=== PATIENT | male | born 1955 | race Caucasian/White ===

== ENCOUNTER 2016-07-07 16:45 | Emergency (ER) | payer OTHER ==
[~2016-07-07] VITALS: Ht 177.8 cm; Wt 89.9 kg
[2016-07-07 16:50] VITALS: Ht 177.8 cm; Wt 89.9 kg
[2016-07-07] MEDS ORDERED: SODIUM CHLORIDE 0.9% 1000ML 1,000 ML IV STA ×2 (16:57)
[2016-07-07 17:14] VITALS: O2SAT 96
[2016-07-07 17:52] LABS: BASO % 0.4 %; BASO ABS # 0.03 K/uL (0-0.2); COMPLETE YES; EOS % 3.8 %; HEMATOCRIT 43.5 % (42-52); IG% 0.1 %; LYMPH ABS # 1.23 K/uL (1.2-3.4); MEAN CORPUSCULAR HEMOGLOBIN 32.6 pg (25-34); MEAN CORPUSCULAR HGB CONC 34.7 g/dl (32-36); MONO % 9.5 %; NEUT % 68.2 %; PLATELET COUNT 218 K/uL (130-400); RED BLOOD COUNT 4.63 M/uL (4.7-6.1); WHITE BLOOD COUNT 6.84 K/uL (4.8-10.8)
[2016-07-07 18:10] LABS: PARTIAL THROMBOPLASTIN RATIO 1.1; PROTHROMBIN TIME (PATIENT) 10.5 SECONDS (9.0-12.0)
[2016-07-07 18:16] LABS: CREATININE 1.1 mg/dl (0.60-1.40); POTASSIUM 3.7 mmol/L (3.5-5.1)
[2016-07-07 18:19] LABS: ALB/GLOB RATIO 0.8 (0.9-2)
[2016-07-07 18:20] LABS: CALCIUM 8.9 mg/dl (8.5-10.1)
[2016-07-07 19:03] LABS: URINE APPEARANCE CLEAR (CLEAR); URINE BILIRUBIN NEG (NEG); URINE COLOR YELLOW; URINE EPITHELIAL CELL AUTO 0-5 /lpf (0-5); URINE NITRITE NEG (NEG); URINE SPECIFIC GRAVITY 1.005 (1.000-1.030); UROBILINOGEN NEG (NEG); ZZUR CULT IF INDIC CLEAN CATCH NO
[2016-07-07 19:04] LABS: MANUAL MICROSCOPIC REQUIRED? NO; REVIEW REQ? NO
[2016-07-07 19:13] VITALS: BP 133/78; PULSE 72; TEMP 37.4; O2SAT 98
[2016-07-07] MEDS ORDERED: KETOROLAC TROMETHAMINE 30 MG/ML VIAL IV STA (19:27)
--- NOTE | 2016-07-07 19:30 | EMERGENCY ROOM VISIT NOTE ---
History First contact with patient: 16:52 Chief Complaint: FLU LIKE SX Stated Complaint: FLU LIKE SX AFTER PROSTRAST BIOPSY History of Present Illness The patient is a 61 year old male who presents to the Emergency Room with complaints of fever, chills, myalgias and arthralgias for the past day who had a prostate biopsy done yesterday and was on prophylactic Cipro. Patient called his urologist and was advised to go to the ER. He saw Dr. Vasquez. His PSA was elevated and this is what the biopsy was ordered for. Patient plans of urinary frequency. Patient denies chest pain, dyspnea, cough, congestion, abdominal pain, rectal pain, back pain, leg pain or swelling. He is tolerating by mouth fluids and food. Review of Systems See HPI for pertinent positives & negatives. A total of 10 systems reviewed and were otherwise negative. Past Medical/Surgical History none Social History Smoking Status: Never Smoker Smokeless Tobacco Use: No Drug Use: none Marital Status: Housing Status: lives with family Occupation Status: employed Current/Historical Medications No Active Prescriptions or Reported Meds Allergies Coded Allergies: Ciprofloxacin (Unverified Allergy, Unknown, UNKNOWN, 07/07/16) PER PT ANTIBIOTIC DOES NOT WORK. Physical Exam Vital Signs Date Time Temp Pulse Resp B/P Pulse Ox O2 Delivery O2 Flow Rate FiO2 07/07/16 19:13 37.4 72 20 133/78 98 Room Air 07/07/16 18:44 63 16 137/74 98 Room Air 07/07/16 17:14 96 Room Air 07/07/16 16:50 36.7 99 18 148/83 97 Room Air Physical Exam VITALS: Vitals are noted on the nurse's note and reviewed by myself. Vital signs stable. GENERAL: Pleasant male, in no acute distress, nondiaphoretic, well-developed well-nourished. SKIN: The skin was without rashes, erythema, edema, or bruising. There is no tenting of the skin. Capillary reflex less than 2 seconds. HEAD: Normocephalic atraumatic. EARS: External auditory canals clear, tympanic membranes pearly martinez without erythema or effusion bilaterally. EYES: Pupils equal round and reactive to light and accommodation. Conjunctivae without injection, sclerae without icterus. Extraocular movements intact. NOSE: Patent, turbinates without inflammation or discharge. MOUTH: Mucous membranes moist. Pharynx without erythema or exudate. Uvula midline. Airway patent. Tongue does not deviate. NECK: Supple without nuchal rigidity. No lymphadenopathy. No thyromegaly. Cervical spine is nontender. No JVD. HEART: Regular rate and rhythm without murmurs gallops or rubs. LUNGS: Clear to auscultation bilaterally without wheezes, rales or rhonchi. No dullness to percussion. No retractions or accessory muscle use. ABDOMEN: Positive bowel sounds x 4. Normal tympanic percussion. Soft, nontender, without masses or organomegaly. Eduardo sign negative. No guarding or rebound tenderness. Rectal exam: No erythema, drainage or bleeding appreciated. MUSCULOSKELETAL: No muscle atrophy, erythema, or edema noted. NEURO: Patient was alert and oriented to person place and time. Normal sensation to light and sharp touch. No focal neurological deficits. Medical Decision & Procedures Laboratory Results 07/07/16 17:25 Red Blood Count 4.63, Mean Corpuscular Volume 94.0, Mean Corpuscular Hemoglobin 32.6, Mean Corpuscular Hemoglobin Concent 34.7, Mean Platelet Volume 10.0, Neutrophils (%) (Auto) 68.2, Lymphocytes (%) (Auto) 18.0, Monocytes (%) (Auto) 9.5, Eosinophils (%) (Auto) 3.8, Basophils (%) (Auto) 0.4, Neutrophils # (Auto) 4.66, Lymphocytes # (Auto) 1.23, Monocytes # (Auto) 0.65, Eosinophils # (Auto) 0.26, Basophils # (Auto) 0.03 07/07/16 17:25 Test 07/07/16 17:15 07/07/16 17:25 07/07/16 17:35 Urine Color YELLOW Urine Appearance CLEAR (CLEAR) Urine pH 7.0 (4.5-7.5) Urine Specific [place] 1.005 (1.000-1.030) Urine Protein NEG (NEG) Urine Glucose (UA) NEG (NEG) Urine Ketones NEG (NEG) Urine Occult Blood 2+ (NEG) Urine Nitrite NEG (NEG) Urine Bilirubin NEG (NEG) Urine Urobilinogen NEG (NEG) Urine Leukocyte Esterase NEG (NEG) Urine WBC (Auto) 0 /hpf (0-5) Urine RBC (Auto) 10-30 /hpf (0-4) Urine Hyaline Casts (Auto) 0 /lpf (0-5) Urine Epithelial Cells (Auto) 0-5 /lpf (0-5) Urine Bacteria (Auto) NEG (NEG) White Blood Count 6.84 K/uL (4.8-10.8) Red Blood Count 4.63 M/uL (4.7-6.1) Hemoglobin 15.1 g/dL (14.0-18.0) Hematocrit 43.5 % (42-52) Mean Corpuscular Volume 94.0 fL (80-100) Mean Corpuscular Hemoglobin 32.6 pg (25-34) Mean Corpuscular Hemoglobin Concent 34.7 g/dl (32-36) Platelet Count 218 K/uL (130-400) Mean Platelet Volume 10.0 fL (7.4-10.4) Neutrophils (%) (Auto) 68.2 % Lymphocytes (%) (Auto) 18.0 % Monocytes (%) (Auto) 9.5 % Eosinophils (%) (Auto) 3.8 % Basophils (%) (Auto) 0.4 % Neutrophils # (Auto) 4.66 K/uL (1.4-6.5) Lymphocytes # (Auto) 1.23 K/uL (1.2-3.4) Monocytes # (Auto) 0.65 K/uL (0.11-0.59) Eosinophils # (Auto) 0.26 K/uL (0-0.5) Basophils # (Auto) 0.03 K/uL (0-0.2) RDW Standard Deviation 43.6 fL (36.4-46.3) RDW Coefficient of Variation 12.7 % (11.5-14.5) Immature Granulocyte % (Auto) 0.1 % Immature Granulocyte # (Auto) 0.01 K/uL (0.00-0.02) Prothrombin Time 10.5 SECONDS (9.0-12.0) Prothromb Time International Ratio 1.0 (0.9-1.1) Activated Partial Thromboplast Time 28.0 SECONDS (21.0-31.0) Partial Thromboplastin Ratio 1.1 Anion Gap 8.0 mmol/L (3-11) Est Creatinine Clear Calc Drug Dose 81.6 ml/min Estimated GFR () 84.7 Estimated GFR (Non- 73.1 BUN/Creatinine Ratio 13.0 (10-20) Calcium Level 8.9 mg/dl (8.5-10.1) Total Bilirubin 0.3 mg/dl (0.2-1) Aspartate Amino Transf (AST/SGOT) 24 U/L (15-37) Alanine Aminotransferase (ALT/SGPT) 32 U/L (12-78) Alkaline Phosphatase 79 U/L (45-117) Total Protein 7.8 gm/dl (6.4-8.2) Albumin 3.5 gm/dl (3.4-5.0) Globulin 4.3 gm/dl (2.5-4.0) Albumin/Globulin Ratio 0.8 (0.9-2) Bedside Lactic Acid Venous 1.32 mmol/L (0.90-1.70) Medications Administered Medications (Trade) Dose Ordered Sig/Larry Route Start Time Stop Time Status Last Admin Dose Admin Sodium Chloride 1,000 ml @ 999 mls/hr Q1H1M STAT IV 07/07/16 16:57 07/07/16 17:57 DC 07/07/16 16:57 999 MLS/HR Sodium Chloride (Nss 1000ml) 1,000 ml @ 125 mls/hr Q8H STAT IV 07/07/16 16:57 07/08/16 00:56 07/07/16 16:57 125 MLS/HR ED Course Prior records/ancillary studies reviewed. Triage Nursing notes reviewed. Additional history obtained from family. The patient's history was concerning for fever. Differential diagnosis: Etiologies such as complication of recent prostate biopsy, UTI, prostatitis, viral syndrome, otitis, pharyngitis, pneumonia, influenza, meningitis, urinary tract infection, sepsis, bacteremia, as well as others were entertained. Physical examination: Patient is alert and tolerating fluids ER treatment provided: toradol. IV fluids On reassessment the patient felt better. Diagnostics interpreted by me: The labs revealed hematuria, no signs of infection. Negative lactic acid Consultation: A consultation was placed with urology Dr. Vasquez who did the biopsy. The case was discussed and diagnostics were reviewed. She recommends adding on a urine culture and she will follow-up with the patient tomorrow. He recommends no antibiotics and Motrin for pain. This appears to be consistent with subjective fever and chills with no temperature. Patient is well-appearing. He is tolerating fluids. No urine infection on urine culture. He was advised to take Motrin for the pain and to follow-up tomorrow with urology or here in the ER sooner for fevers, vomiting, lethargy, worsening signs or symptoms or as needed. Patient did not have acute abdomen on exam. He is well-appearing.. By the evaluation outlined above emergent etiologies such as otitis, pharyngitis, pneumonia, meningitis, urinary tract infection, sepsis, bacteremia, as well as others were deemed relatively unlikely. The pt informed about the findings as listed above. All questions were answered and pleased with the treatment. Return instructions were outlined and the patient was discharged in stable condition. Referral: The patient was referred back to their urologist tomorrow for a recheck of the current condition. Case reviewed with my Attending. Medical Decision As above Impression Primary Impression: Hematuria Departure Information Dispostion Home / Self-Care Condition GOOD Prescriptions No Active Prescriptions or Reported Meds Referrals Deni Montalvo (PCP) Patient Instructions My [facility] Additional Instructions Ibuprofen(Motrin, Advil) may be used for fever or pain. Use 600mg every six hours as needed. Take with food. Avoid using more than 2400mg in a 24 hour period. Do not use 2400mg per day for more than three consecutive days without physician direction. Prolonged inappropriate use can lead to stomach upset or ulcers. (AND/OR) Acetaminophen(Tylenol) may be used for fever or pain. Use 1000mg every six hours as needed. Avoid using more than 3000mg in a 24 hour period. Rest and drink plenty of fluids as tolerated. Slow sips of water or sports drinks are recommended instead of large amounts all at once. Continue current medications. Return to the ER immediately for worsening or persistent abdominal/back pain, vomiting, fevers, worsening of your condition, or as needed. Follow up with your urologist tomorrow for a recheck of the current condition.
[2016-07-29] MEDS ORDERED: MULTTAB58 PO (10:10)
[2016-07-29] MEDS ORDERED: CETI10TA84 PO (10:10)
[2016-07-29] MEDS ORDERED: [UNRECOGNIZED DRUG - REMARK] PO (10:10)
[2016-07-29] MEDS ORDERED: OMEG10007 PO (10:10)
[2016-09-14] MEDS ORDERED: POLY335019 PO (08:45)
[2016-09-21] MEDS ORDERED: PSYL48.59 PO (08:55)
[2016-09-28] MEDS ORDERED: DTR/5 PO (08:55)
[2016-10-20] MEDS ORDERED: TAMS0.4C38 PO (08:29)
== END 2016-07-07 19:42 | disposition home or self-care (01) ==
LOC: C.EDB 16:50
DX: R31.9 Hematuria, unspecified (principal); R50.9 Fever, unspecified; M79.1 Myalgia; M25.50 Pain in unspecified joint

== ENCOUNTER 2016-07-07 22:59 | Inpatient (IN) | payer OTHER ==
[~2016-07-07] VITALS: Ht 177.8 cm; Wt 86.0 kg
[2016-07-07] MEDS ORDERED: PIPERACILLIN/TAZOBACTAM 4.5 GM/100ML D5W IV STA (23:04)
[2016-07-07] MEDS ORDERED: SODIUM CHLORIDE 0.9% 1000ML 1,000 ML IV STA ×2 (23:04→23:19)
[2016-07-07] MEDS ORDERED: CEFTRIAXONE SOD INJ 1 GM in DEXTROSE 5% ADD-VANTAGE 50ML 50 ML IV STA (23:16)
[2016-07-07] MEDS ORDERED: ONDANSETRON INJ 2 MG/ML 2 ML VIAL IV STA (23:19)
[2016-07-07] MEDS ORDERED: ALUMINUM/MAGNESIUM/SIMETH (MAALOX MAX) 30 ML UDC PO PRN (23:30)
[2016-07-07] MEDS ORDERED: ONDANSETRON INJ 2 MG/ML 2 ML VIAL IV PRN (23:30)
[2016-07-07] MEDS ORDERED: CEFTRIAXONE SOD INJ 1 GM in DEXTROSE 5% ADD-VANTAGE 50ML 50 ML IV SCH (23:30)
[2016-07-07] MEDS ORDERED: SODIUM CHLORIDE 0.9% 1000ML 1,000 ML IV SCH (23:30)
[2016-07-07] MEDS ORDERED: MAGNESIUM HYDROXIDE SUSP 30 ML UDC PO PRN (23:30)
[2016-07-07] MEDS ORDERED: POLYETHYLENE (MIRALAX) 17 GM PACK PO PRN (23:30)
[2016-07-07] MEDS ORDERED: ZOLPIDEM TARTRATE 5 MG TAB PO PRN (23:30)
[2016-07-07 23:38] LABS: BASO % 0.2 %; BASO ABS # 0.01 K/uL (0-0.2); COMPLETE YES; EOS % 0.9 %; IG% 0.2 %; LYMPH % 10.2 %; LYMPH ABS # 0.67 K/uL (1.2-3.4); MEAN CELL VOLUME 92.6 fL (80-100); MEAN CORPUSCULAR HEMOGLOBIN 32.7 pg (25-34); MEAN CORPUSCULAR HGB CONC 35.4 g/dl (32-36); MEAN PLATELET VOLUME 9.5 fL (7.4-10.4); MONO % 0.5 %; PLATELET COUNT 195 K/uL (130-400); RED BLOOD COUNT 4.43 M/uL (4.7-6.1); WHITE BLOOD COUNT 6.54 K/uL (4.8-10.8)
--- NOTE | 2016-07-07 23:45 | EMERGENCY ROOM VISIT NOTE ---
History First contact with patient: 23:01 Chief Complaint: VOMITING Stated Complaint: VOMITTING, FEVER History of Present Illness The patient is a 61 year old male who presents to the Emergency Room with complaints of fever, chills, myalgias, arthralgias, nausea, vomiting who had a prostate biopsy yesterday by Dr. Vasquez. Patient was just discharged here 2 hours ago and states when he got home he ate and then felt sick and vomited to the shower and developed a fever. His then called me in the ER and I advised them to come back to the ER. Patient temperature was 102. Patient states he feels horrible now. He states he feels much worse than earlier today. She denies chest pain, dyspnea, abdominal pain, back pain, cough, congestion. Review of Systems See HPI for pertinent positives & negatives. A total of 10 systems reviewed and were otherwise negative. Past Medical/Surgical History Medical Problems: (1) Fever Social History Smoking Status: Never Smoker Drug Use: none Marital Status: Housing Status: lives with family Occupation Status: employed Current/Historical Medications No Active Prescriptions or Reported Meds Allergies Coded Allergies: Ciprofloxacin (Unverified Allergy, Unknown, UNKNOWN, 07/07/16) PER PT ANTIBIOTIC DOES NOT WORK. Physical Exam Vital Signs Date Time Temp Pulse Resp B/P Pulse Ox O2 Delivery O2 Flow Rate FiO2 07/07/16 23:17 107 07/07/16 23:04 39.5 135 20 144/78 90 Room Air Physical Exam VITALS: Vitals are noted on the nurse's note and reviewed by myself. Vital signs febrile GENERAL: White male ill-appearing, pale SKIN: The skin was without rashes, erythema, edema, or bruising. There is no tenting of the skin. Capillary reflex less than 2 seconds. HEAD: Normocephalic atraumatic. EARS: External auditory canals clear, tympanic membranes pearly martinez without erythema or effusion bilaterally. EYES: Pupils equal round and reactive to light and accommodation. Conjunctivae without injection, sclerae without icterus. Extraocular movements intact. NOSE: Patent, turbinates without inflammation or discharge. No sinus tenderness. MOUTH: Mucous membranes mildly dry. Pharynx without erythema or exudate. Uvula midline. Airway patent. Tongue does not deviate. NECK: Supple without nuchal rigidity. No lymphadenopathy. No thyromegaly. Cervical spine is nontender. No JVD. HEART: Regular rate and rhythm without murmurs gallops or rubs. LUNGS: Clear to auscultation bilaterally without wheezes, rales or rhonchi. No dullness to percussion. No retractions or accessory muscle use. ABDOMEN: Positive bowel sounds x 4. Normal tympanic percussion. Soft, nontender, without masses or organomegaly. Eduardo sign negative. No guarding or rebound tenderness. MUSCULOSKELETAL: No muscle atrophy, erythema, or edema noted. NEURO: Patient was alert and oriented to person place and time. Normal sensation to light and sharp touch. No focal neurological deficits. Medical Decision & Procedures Laboratory Results 07/07/16 23:18 Red Blood Count 4.43, Mean Corpuscular Volume 92.6, Mean Corpuscular Hemoglobin 32.7, Mean Corpuscular Hemoglobin Concent 35.4, Mean Platelet Volume 9.5, Neutrophils (%) (Auto) 88.0, Lymphocytes (%) (Auto) 10.2, Monocytes (%) (Auto) 0.5, Eosinophils (%) (Auto) 0.9, Basophils (%) (Auto) 0.2, Neutrophils # (Auto) 5.76, Lymphocytes # (Auto) 0.67, Monocytes # (Auto) 0.03, Eosinophils # (Auto) 0.06, Basophils # (Auto) 0.01 Test 07/07/16 23:18 White Blood Count 6.54 K/uL (4.8-10.8) Red Blood Count 4.43 M/uL (4.7-6.1) Hemoglobin 14.5 g/dL (14.0-18.0) Hematocrit 41.0 % (42-52) Mean Corpuscular Volume 92.6 fL (80-100) Mean Corpuscular Hemoglobin 32.7 pg (25-34) Mean Corpuscular Hemoglobin Concent 35.4 g/dl (32-36) Platelet Count 195 K/uL (130-400) Mean Platelet Volume 9.5 fL (7.4-10.4) Neutrophils (%) (Auto) 88.0 % Lymphocytes (%) (Auto) 10.2 % Monocytes (%) (Auto) 0.5 % Eosinophils (%) (Auto) 0.9 % Basophils (%) (Auto) 0.2 % Neutrophils # (Auto) 5.76 K/uL (1.4-6.5) Lymphocytes # (Auto) 0.67 K/uL (1.2-3.4) Monocytes # (Auto) 0.03 K/uL (0.11-0.59) Eosinophils # (Auto) 0.06 K/uL (0-0.5) Basophils # (Auto) 0.01 K/uL (0-0.2) RDW Standard Deviation 42.9 fL (36.4-46.3) RDW Coefficient of Variation 12.6 % (11.5-14.5) Immature Granulocyte % (Auto) 0.2 % Immature Granulocyte # (Auto) 0.01 K/uL (0.00-0.02) ED Course Prior records/ancillary studies reviewed. Triage Nursing notes reviewed. Additional history obtained from family The patient's history was concerning for fever. Differential diagnosis: Etiologies such as prostatitis, viral syndrome, otitis, pharyngitis, pneumonia, influenza, meningitis, urinary tract infection, sepsis, bacteremia, as well as others were entertained. Physical examination: Patient is febrile and ill-appearing ER treatment provided: Zosyn, IV fluids, Tylenol On reassessment the patient felt better. Diagnostics interpreted by me: The labs revealed no leukocytosis. Labs were reviewed from earlier today Consultation: A consultation was placed with urologist Dr. Vasquez and recommends Zosyn and admission to medicine. I spoke to the hospitalist, Dr. Goldsmith and accepts admission. The case was discussed and diagnostics were reviewed. The patient was evaluated in the ER for further treatment. This appears to be consistent with prostatitis or recent prostate biopsy. Patient's called me an hour ago as the patient developed a fever and I advised him to come back to the ER for admission. I spoke to Dr. Vasquez and recommends antibiotics and admission to medicine. Patient was started on broad- spectrum antibiotics and blood cultures were repeated per request of Dr. Vasquez. By the evaluation outlined above emergent etiologies such as otitis, pharyngitis, pneumonia, meningitis, as well as others were deemed relatively unlikely. The pt informed about the findings as listed above. All questions were answered and pleased with the treatment. Case reviewed with my Attending. Medical Decision As above Impression Primary Impression: Prostatitis Additional Impressions: Vomiting Fever Departure Information Dispostion Being Evaluated By Hospitalist Condition FAIR Prescriptions No Active Prescriptions or Reported Meds Referrals Deni Montalvo (PCP) Patient Instructions My [facility] Problem Qualifiers Primary Impression: Prostatitis Prostatitis type: acute Qualified Codes: N41.0 - Acute prostatitis
[2016-07-07] MEDS: ACETAMINOPHEN 325 MG TAB PO PRN (23:52)
[2016-07-08] VITALS (8 sets, daily range): BP systolic 89–131; BP diastolic 53–68; PULSE 62–93; TEMP 36.7–38; O2SAT 92–94; Ht 177.8 cm; Wt 86.0 kg
--- NOTE | 2016-07-08 01:42 | History and Physical ---
History & Physical Date & Time of Service: July 08, 2016 at 01:42 Chief Complaint: FEVER Primary Care Physician: Deni Montalvo History of Present Illness Source: patient The patient is a 61 year old male who presents to the Emergency Room with complaints of fever, chills Pt had prostate biopsy done yesterday by Dr Vasquez , due to elevated PSA pt was discharged home , later developed fever , diffuse body ache , nausea was asked to come to ED by Dr Vasquez office in the ED pt was found to febrile , Temp 102 F Social History Smoking Status: Never Smoker Drug Use: none Marital Status: Occupational Status: employed Allergies Coded Allergies: Ciprofloxacin (Unverified Allergy, Unknown, UNKNOWN, 07/07/16) PER PT ANTIBIOTIC DOES NOT WORK. Home Medications No Active Prescriptions or Reported Meds Review of Systems Constitutional: + chills, + fatigue, + fever, + sweats, + weakness Abdomen: + nausea, + vomiting Musculoskeletal: + joint pain, + muscle pain Genitourinary - Male: + dysuria, + hematuria, + urinary frequency Physical Exam Vital Signs Date Time Temp Pulse Resp B/P Pulse Ox O2 Delivery O2 Flow Rate FiO2 07/08/16 00:30 38.0 93 18 102/61 92 Room Air 07/08/16 00:05 37.4 97 22 111/71 94 07/07/16 23:17 107 07/07/16 23:04 39.5 135 20 144/78 90 Room Air General Appearance: + mild distress Head: normocephalic, atraumatic Eyes: sclerae normal Respiratory/Chest: lungs clear, normal breath sounds, no respiratory distress Cardiovascular: regular rate, rhythm Abdomen/GI: normal bowel sounds, non tender, soft Extremities/Musculoskelatal: no calf tenderness, normal capillary refill, no pedal edema Neurologic/Psych: alert, normal mood/affect, oriented x 3 Skin: normal color, warm/dry, no rash Lymphatic: no adenopathy Diagnostics Laboratory Results Results Past 24 Hours Test 07/07/16 23:18 07/07/16 23:28 Range/Units White Blood Count 6.54 4.8-10.8 K/uL Red Blood Count 4.43 4.7-6.1 M/uL Hemoglobin 14.5 14.0-18.0 g/dL Hematocrit 41.0 42-52 % Mean Corpuscular Volume 92.6 80-100 fL Mean Corpuscular Hemoglobin 32.7 25-34 pg Mean Corpuscular Hemoglobin Concent 35.4 32-36 g/dl Platelet Count 195 130-400 K/uL Mean Platelet Volume 9.5 7.4-10.4 fL Neutrophils (%) (Auto) 88.0 % Lymphocytes (%) (Auto) 10.2 % Monocytes (%) (Auto) 0.5 % Eosinophils (%) (Auto) 0.9 % Basophils (%) (Auto) 0.2 % Neutrophils # (Auto) 5.76 1.4-6.5 K/uL Lymphocytes # (Auto) 0.67 1.2-3.4 K/uL Monocytes # (Auto) 0.03 0.11-0.59 K/uL Eosinophils # (Auto) 0.06 0-0.5 K/uL Basophils # (Auto) 0.01 0-0.2 K/uL RDW Standard Deviation 42.9 36.4-46.3 fL RDW Coefficient of Variation 12.6 11.5-14.5 % Immature Granulocyte % (Auto) 0.2 % Immature Granulocyte # (Auto) 0.01 0.00-0.02 K/uL Bedside Lactic Acid Venous 1.90 0.90-1.70 mmol/L Microbiology Results 07/07/16 Blood Culture, Received Pending 07/07/16 Blood Culture, Received Pending 07/08/16 Urine Culture, Received Pending Impression Assessment and Plan FEVER /CHILLS POSSIBLE PROSTATITIS: S/P recent prostate biopsy blood and urine culture obtained admit to medical floor empiric abx with Iv Zosyn presents with tachycardia , fever , mild elevation of lactic acid IVF @ 100 ml /hr repeat lactic acid /lab in AM follow blood urine culture FULL CODE DVT PROPHYLAXIS : low risk scd and teds ambulate DISPOSITION ; discharge home when medically stable Level of Care Med/Surg Resuscitation Status FULL RESUSCITATION VTE Prophylaxis VTE Risk Assessment Done? Y/N: Yes Risk Level: Low Given or contraindicated: T.E.D. Stockings, SCD's Additional Copies To Julita Vasquez MD
[2016-07-08] MEDS: PIPERACILL/TAZOBAC IV 3.375 GM in DEXTROSE 5% 100ML 100 ML IV SCH ×3 (05:50→22:30)
[2016-07-08 08:27] LABS: HEMATOCRIT 37.9 % (42-52); MEAN CELL VOLUME 93.6 fL (80-100); MEAN CORPUSCULAR HEMOGLOBIN 32.3 pg (25-34); MEAN CORPUSCULAR HGB CONC 34.6 g/dl (32-36); MEAN PLATELET VOLUME 9.8 fL (7.4-10.4); PLATELET COUNT 186 K/uL (130-400); RED BLOOD COUNT 4.05 M/uL (4.7-6.1)
[2016-07-08 08:54] LABS: BUN/CREATININE RATIO 10.9 (10-20); CREATININE 1.2 mg/dl (0.60-1.40); POTASSIUM 3.9 mmol/L (3.5-5.1)
[2016-07-08 09:01] LABS: CALCIUM 7.8 mg/dl (8.5-10.1)
--- NOTE | 2016-07-08 11:41 | Progress Note ---
Medicine Progress Note Date & Time of Visit: July 08, 2016 at 11:17. Subjective Pt was seen and examined Lying in bed with no distress Pt said that nausea and vomiting resolved Pt said that he feels fine tolerates diet well He said that he has no urinary symptoms denies any chest pain, fever, palpitation and sob Objective Last 8 Hrs Date Time Temp Pulse Resp B/P Pulse Ox O2 Delivery O2 Flow Rate FiO2 07/08/16 07:44 96/59 07/08/16 07:42 36.7 65 20 89/53 93 Room Air Physical Exam: General- No acute distress Head- atraumatic Eyes- PERRL, EOMI ENT- oropharynx clear Neck- supple, no JVD Lungs- No wheezing, No crackles Heart- regular rhythm; no murmur Abdomen- normal bowel sounds, soft Extremities-no calf tenderness Neuro- alert, oriented x 3; PERRL, EOMI; no facial palsy Skin- warm & dry Laboratory Results: Last 24 Hours Test 07/07/16 23:18 07/07/16 23:28 07/08/16 08:12 White Blood Count 6.54 K/uL 14.30 K/uL Red Blood Count 4.43 M/uL 4.05 M/uL Hemoglobin 14.5 g/dL 13.1 g/dL Hematocrit 41.0 % 37.9 % Mean Corpuscular Volume 92.6 fL 93.6 fL Mean Corpuscular Hemoglobin 32.7 pg 32.3 pg Mean Corpuscular Hemoglobin Concent 35.4 g/dl 34.6 g/dl Platelet Count 195 K/uL 186 K/uL Mean Platelet Volume 9.5 fL 9.8 fL Neutrophils (%) (Auto) 88.0 % Lymphocytes (%) (Auto) 10.2 % Monocytes (%) (Auto) 0.5 % Eosinophils (%) (Auto) 0.9 % Basophils (%) (Auto) 0.2 % Neutrophils # (Auto) 5.76 K/uL Lymphocytes # (Auto) 0.67 K/uL Monocytes # (Auto) 0.03 K/uL Eosinophils # (Auto) 0.06 K/uL Basophils # (Auto) 0.01 K/uL RDW Standard Deviation 42.9 fL 44.0 fL RDW Coefficient of Variation 12.6 % 12.8 % Immature Granulocyte % (Auto) 0.2 % Immature Granulocyte # (Auto) 0.01 K/uL Bedside Lactic Acid Venous 1.90 mmol/L Sodium Level 143 mmol/L Potassium Level 3.9 mmol/L Chloride Level 112 mmol/L Carbon Dioxide Level 25 mmol/L Anion Gap 6.0 mmol/L Blood Urea Nitrogen 13 mg/dl Creatinine 1.20 mg/dl Est Creatinine Clear Calc Drug Dose 68.4 ml/min Estimated GFR () 76.3 Estimated GFR (Non- 65.8 BUN/Creatinine Ratio 10.9 Random Glucose 114 mg/dl Lactic Acid Level 1.4 mmol/L Calcium Level 7.8 mg/dl Hepatitis C Antibody Screen NEG Date/Time Source Procedure Growth Status 07/07/16 23:20 Blood Blood Culture Pending Received 07/07/16 23:18 Blood Blood Culture Pending Received 07/08/16 00:35 Urine , Clean Catch Urine Culture Pending Received Assessment & Plan FEVER /CHILLS Possible related to prostatitis had prostate biopsy done on 07/[address] Vasquez for elevated PSA On admission present with tachycardia, fever, elevated poc lactic acid blood and urine culture pending WBC elevated this morning Continue IV Zosyn BP in the low side continue IVF monitor VS monitor CBC Will continue monitor pt in the hospital need to be afebrile for 24 hr and negative culture to be discharged. VOMITING tolerated diet well Resolved DVT PROPHYLAXIS : SCD and ambulate CODE STATUS FULL CODE DISPOSITION discharge home when medically stable Current Inpatient Medications: Current Inpatient Medications Medications (Trade) Dose Ordered Sig/Larry Route Start Time Stop Time Status Last Admin Dose Admin Acetaminophen (Tylenol Tab) 650 mg Q4H PRN PO 07/07/16 23:30 08/06/16 23:29 07/07/16 23:52 650 MG Al Hydrox/Mg Hydrox/Simethicone (Maalox Max Susp) 15 ml Q4H PRN PO 07/07/16 23:30 08/06/16 23:29 Magnesium Hydroxide (Milk Of Magnesia Susp) 30 ml Q6H PRN PO 07/07/16 23:30 08/06/16 23:29 07/08/16 08:04 30 ML Polyethylene (Miralax Powder Packet) 17 gm DAILY PRN PO 07/07/16 23:30 08/06/16 23:29 Zolpidem Tartrate (Ambien Tab) 5 mg HSZ PRN PO 07/07/16 23:30 08/06/16 23:29 Ondansetron HCl 4 mg 4 mg Q6H PRN IV 07/07/16 23:30 08/06/16 23:29 Piperacillin Sod/ Tazobactam Sod/ Dextrose (Zosyn Iv/D5 100ml) 115 ml @ 28.75 mls/ hr Q8H IV 07/08/16 06:00 07/18/16 05:59 07/08/16 05:50 28.75 MLS/HR
[2016-07-08] MEDS ORDERED: NURSING VERBAL MED ORDER ONE (12:15)
[2016-07-08] MEDS ORDERED: SODIUM CHLORIDE 0.9% 1000ML 1,000 ML IV SCH (12:30)
[2016-07-08] MEDS ORDERED: PIPERACILL/TAZOBAC CONSULT ACTIVE PRN (15:45)
--- NOTE | 2016-07-08 18:29 | Progress Note ---
Subjective Date of Service: July 08, 2016. Subjective Pt evaluation today including: conversation w/ patient, chart review, lab review Voiding: no voiding problems patient with fever prostatitis possible bacteremia after prostate biopsy Wednesday. He was covered with cipro with the biopsy He feels better today. fever to 103 in ER 2nd time. white count up this am. on zosyn Problem List Medical Problems: (1) Hematuria Status: Acute (2) Prostatitis Status: Acute (3) Vomiting Status: Acute Review of Systems Constitutional: + chills, + fatigue, + fever, + sweats, + weakness Objective Vital Signs Date Time Temp Pulse Resp B/P Pulse Ox O2 Delivery O2 Flow Rate FiO2 07/08/16 15:51 37.2 62 17 115/65 94 Room Air 07/08/16 12:09 65 131/68 07/08/16 07:58 Room Air 07/08/16 07:44 96/59 07/08/16 07:42 36.7 65 20 89/53 93 Room Air 07/08/16 02:49 37.4 07/08/16 00:30 Room Air 07/08/16 00:30 38.0 93 18 102/61 92 Room Air 07/08/16 00:30 38.0 93 18 102/61 92 Room Air 07/08/16 00:05 37.4 97 22 111/71 94 07/07/16 23:17 107 07/07/16 23:04 39.5 135 20 144/78 90 Room Air Laboratory Results Last 24 Hours Test 07/07/16 23:18 07/07/16 23:28 07/08/16 08:12 White Blood Count 6.54 K/uL 14.30 K/uL Red Blood Count 4.43 M/uL 4.05 M/uL Hemoglobin 14.5 g/dL 13.1 g/dL Hematocrit 41.0 % 37.9 % Mean Corpuscular Volume 92.6 fL 93.6 fL Mean Corpuscular Hemoglobin 32.7 pg 32.3 pg Mean Corpuscular Hemoglobin Concent 35.4 g/dl 34.6 g/dl Platelet Count 195 K/uL 186 K/uL Mean Platelet Volume 9.5 fL 9.8 fL Neutrophils (%) (Auto) 88.0 % Lymphocytes (%) (Auto) 10.2 % Monocytes (%) (Auto) 0.5 % Eosinophils (%) (Auto) 0.9 % Basophils (%) (Auto) 0.2 % Neutrophils # (Auto) 5.76 K/uL Lymphocytes # (Auto) 0.67 K/uL Monocytes # (Auto) 0.03 K/uL Eosinophils # (Auto) 0.06 K/uL Basophils # (Auto) 0.01 K/uL RDW Standard Deviation 42.9 fL 44.0 fL RDW Coefficient of Variation 12.6 % 12.8 % Immature Granulocyte % (Auto) 0.2 % Immature Granulocyte # (Auto) 0.01 K/uL Bedside Lactic Acid Venous 1.90 mmol/L Sodium Level 143 mmol/L Potassium Level 3.9 mmol/L Chloride Level 112 mmol/L Carbon Dioxide Level 25 mmol/L Anion Gap 6.0 mmol/L Blood Urea Nitrogen 13 mg/dl Creatinine 1.20 mg/dl Est Creatinine Clear Calc Drug Dose 68.4 ml/min Estimated GFR () 76.3 Estimated GFR (Non- 65.8 BUN/Creatinine Ratio 10.9 Random Glucose 114 mg/dl Lactic Acid Level 1.4 mmol/L Calcium Level 7.8 mg/dl Hepatitis C Antibody Screen NEG Assessment and Plan febrile illness after prostate biopsy will be a cipro resistant bacteria. seems to be responding to zosyn. will likely be discharged tomorrow perhaps omnicef until cultures are returned. will need to take 2 week course. I will see him early next week for pathology discussion.
[2016-07-08] MEDS: ACETAMINOPHEN 325 MG TAB PO PRN (20:05)
[2016-07-09] MEDS: PIPERACILL/TAZOBAC IV 3.375 GM in DEXTROSE 5% 100ML 100 ML IV SCH ×2 (05:47→14:00)
[2016-07-09 07:37] VITALS: BP 117/70; PULSE 69; TEMP 37.5; O2SAT 94
[2016-07-09 08:46] LABS: MEAN CELL VOLUME 94.4 fL (80-100); MEAN CORPUSCULAR HEMOGLOBIN 32.4 pg (25-34); MEAN CORPUSCULAR HGB CONC 34.3 g/dl (32-36); MEAN PLATELET VOLUME 10.1 fL (7.4-10.4); PLATELET COUNT 175 K/uL (130-400); RED BLOOD COUNT 3.92 M/uL (4.7-6.1); WHITE BLOOD COUNT 8.08 K/uL (4.8-10.8)
[2016-07-09 09:17] LABS: BUN/CREATININE RATIO 7.7 (10-20); CREATININE 1.3 mg/dl (0.60-1.40); POTASSIUM 3.7 mmol/L (3.5-5.1)
[2016-07-09] MEDS: ACETAMINOPHEN 325 MG TAB PO PRN (10:05)
[2016-07-09 10:12] LABS: CALCIUM 8.1 mg/dl (8.5-10.1)
--- NOTE | 2016-07-09 11:49 | Progress Note ---
Medicine Progress Note Date & Time of Visit: July 09, 2016 at 11:38. Subjective Pt was seen and examined Sitting in chair comfortable with no distress Pt said that he feels fine He has not had any fever for over 24hrs denies any chest pain, palpitation, dizziness and SOB Objective Last 8 Hrs Date Time Temp Pulse Resp B/P Pulse Ox O2 Delivery O2 Flow Rate FiO2 07/09/16 07:52 Room Air 07/09/16 07:37 37.5 69 18 117/70 94 Room Air Physical Exam: General- No acute distress Head- atraumatic Eyes- PERRL, EOMI ENT- oropharynx clear Neck- supple, no JVD Lungs- No wheezing, No crackles Heart- regular rhythm; no murmur Abdomen- normal bowel sounds, soft Extremities-no calf tenderness Neuro- alert, oriented x 3; PERRL, EOMI; no facial palsy Skin- warm & dry Laboratory Results: Last 24 Hours Test 07/09/16 08:07 White Blood Count 8.08 K/uL Red Blood Count 3.92 M/uL Hemoglobin 12.7 g/dL Hematocrit 37.0 % Mean Corpuscular Volume 94.4 fL Mean Corpuscular Hemoglobin 32.4 pg Mean Corpuscular Hemoglobin Concent 34.3 g/dl RDW Standard Deviation 46.1 fL RDW Coefficient of Variation 13.4 % Platelet Count 175 K/uL Mean Platelet Volume 10.1 fL Sodium Level 143 mmol/L Potassium Level 3.7 mmol/L Chloride Level 111 mmol/L Carbon Dioxide Level 26 mmol/L Anion Gap 6.0 mmol/L Blood Urea Nitrogen 10 mg/dl Creatinine 1.30 mg/dl Est Creatinine Clear Calc Drug Dose 63.2 ml/min Estimated GFR () 69.2 Estimated GFR (Non- 59.7 BUN/Creatinine Ratio 7.7 Random Glucose 103 mg/dl Calcium Level 8.1 mg/dl Assessment & Plan FEVER /CHILLS Possible related to prostatitis had prostate biopsy done on 07/[address] Vasquez for elevated PSA On admission present with tachycardia, fever, elevated poc lactic acid Urine culture negative Blood cx no growth WBC within normal level Received 3 days of IV abx with rocephin + zosyn Since urine cx and blood cx showed no growth, i will not continue abx I will discharge pt home and if fever reoccurs again advised pt to come back to the ER Follow up with urology next week to discuss pathology result Resolved VOMITING tolerated diet well Resolved DVT PROPHYLAXIS : SCD and ambulate CODE STATUS FULL CODE DISPOSITION discharge home today Follow up with Urology Dr. Vasquez on 07/14 Please call your primary care provider to schedule a follow up appointment within 1 week Consultants: Urology Current Inpatient Medications: Current Inpatient Medications Medications (Trade) Dose Ordered Sig/Larry Route Start Time Stop Time Status Last Admin Dose Admin Acetaminophen (Tylenol Tab) 650 mg Q4H PRN PO 07/07/16 23:30 08/06/16 23:29 07/09/16 10:05 650 MG Al Hydrox/Mg Hydrox/Simethicone (Maalox Max Susp) 15 ml Q4H PRN PO 07/07/16 23:30 08/06/16 23:29 Magnesium Hydroxide (Milk Of Magnesia Susp) 30 ml Q6H PRN PO 07/07/16 23:30 08/06/16 23:29 07/08/16 08:04 30 ML Polyethylene (Miralax Powder Packet) 17 gm DAILY PRN PO 07/07/16 23:30 08/06/16 23:29 Zolpidem Tartrate (Ambien Tab) 5 mg HSZ PRN PO 07/07/16 23:30 08/06/16 23:29 07/08/16 22:30 5 MG Ondansetron HCl 4 mg 4 mg Q6H PRN IV 07/07/16 23:30 08/06/16 23:29 Piperacillin Sod/ Tazobactam Sod/ Dextrose (Zosyn Iv/D5 100ml) 115 ml @ 28.75 mls/ hr Q8H IV 07/08/16 06:00 07/18/16 05:59 07/09/16 05:47 28.75 MLS/HR Piperacillin Sod/ Tazobactam Sod (Consult) 1 ea UD PRN N/A 07/08/16 15:45 08/07/16 15:44
--- NOTE | 2016-07-09 15:49 | Discharge Instructions ---
Discharge Instructions Date of Service July 09, 2016. Admission Reason for Admission: FEVER, Chills, Vomiting Discharge Discharge Diagnosis / Problem: FEVER, Chills, Vomiting Discharge Goals Goal(s): Decrease discomfort, Improve function, Improve disease control Activity Recommendations Activity Limitations: resume your previous activity (as tolerated ) . Instructions / Follow-Up Instructions / Follow-Up Discharge home today Follow up with Urology Dr. Vasquez on 07/14 (appointment already made by urology) Please call your primary care provider to schedule a follow up appointment within 1 week If you develop any fever, please come back to the emergency room or seek medical attention. Current Hospital Diet Patient's current hospital diet: Regular Diet Discharge Diet Recommended Diet: AHA Diet (Heart Healthy) Pending Studies Studies pending at discharge: no Medical Emergencies . Who to Call and When: Medical Emergencies: If at any time you feel your situation is an emergency, please call 911 immediately. . Non-Emergent Contact Non-Emergency issues call your: Primary Care Provider Call Non-Emergent contact if: you have a fever . . "Provider Documentation" section prepared by Shruthi Johnson. . VTE Core Measure Inpt VTE Proph given/why not?: Oneida Manzanares, SCD's
[2016-07-09 16:18] VITALS: BP 117/70; PULSE 69; TEMP 37.5; O2SAT 94
--- NOTE | 2016-07-14 01:08 | Discharge Summary ---
Discharge Summary Date of Service July 14, 2016. Discharge Summary Admission Date: July 07, 2016 at 23:16 Discharge Date: July 09, 2016 Discharge Disposition: Home Principal Diagnosis: Fever Secondary Diagnoses/Problems: FEVER/Chills/Vomiting Consultations: Urology Medication Reconciliation Medication Profile: No Active Prescriptions or Reported Meds Admission Information HPI (per Admitting provider): The patient is a 61 year old male who presents to the Emergency Room with complaints of fever, chills Pt had prostate biopsy done yesterday by Dr Vasquez , due to elevated PSA pt was discharged home , later developed fever , diffuse body ache , nausea was asked to come to ED by Dr Vasquez office in the ED pt was found to febrile , Temp 102 F Physical Exam (per Admitting): General Appearance: + mild distress Head: normocephalic, atraumatic Eyes: sclerae normal Respiratory/Chest: lungs clear, normal breath sounds, no respiratory distress Cardiovascular: regular rate, rhythm Abdomen/GI: normal bowel sounds, non tender, soft Extremities/Musculoskelatal: no calf tenderness, normal capillary refill, no pedal edema Neurologic/Psych: alert, normal mood/affect, oriented x 3 Skin: normal color, warm/dry, no rash Lymphatic: no adenopathy Hospital Course FEVER /CHILLS Possible related to prostatitis had prostate biopsy done on 07/[address] Vasquez for elevated PSA On admission present with tachycardia, fever, elevated poc lactic acid Urine culture negative Blood cx no growth WBC within normal level Received 3 days of IV abx with rocephin + zosyn Since urine cx and blood cx showed no growth, i will not continue abx I will discharge pt home and if fever reoccurs again advised pt to come back to the ER Follow up with urology next week to discuss pathology result Resolved VOMITING tolerated diet well Resolved DVT PROPHYLAXIS : SCD and ambulate CODE STATUS FULL CODE DISPOSITION discharge home today Follow up with Urology Dr. Vasquez on 07/14 Please call your primary care provider to schedule a follow up appointment within 1 week Total time spent on discharge = 35 minutes This includes examination of the patient, discharge planning, medication reconciliation, and communication with other providers. Discharge Instructions Discharge Instructions Date of Service July 09, 2016. Admission Reason for Admission: FEVER, Chills, Vomiting Discharge Goals Goal(s): Decrease discomfort, Improve function, Improve disease control Activity Recommendations Activity Limitations: resume your previous activity (as tolerated ) . Instructions / Follow-Up Instructions / Follow-Up Discharge home today Follow up with Urology Dr. Vasquez on 07/14 (appointment already made by urology) Please call your primary care provider to schedule a follow up appointment within 1 week If you develop any fever, please come back to the emergency room or seek medical attention. Current Hospital Diet Patient's current hospital diet: Regular Diet Discharge Diet Recommended Diet: AHA Diet (Heart Healthy) Pending Studies Studies pending at discharge: no Medical Emergencies . Who to Call and When: Medical Emergencies: If at any time you feel your situation is an emergency, please call 911 immediately. . Non-Emergent Contact Non-Emergency issues call your: Primary Care Provider Call Non-Emergent contact if: you have a fever . . "Provider Documentation" section prepared by Shruthi Johnson. . VTE Core Measure Inpt VTE Proph given/why not?: Oneida Manzanares, SCD's Additional Copies To Julita Vasquez MD
[2016-07-29] MEDS ORDERED: CETI10TA84 PO (10:10)
[2016-07-29] MEDS ORDERED: [UNRECOGNIZED DRUG - REMARK] PO (10:10)
[2016-07-29] MEDS ORDERED: MULTTAB58 PO (10:10)
[2016-07-29] MEDS ORDERED: OMEG10007 PO (10:10)
[2016-09-14] MEDS ORDERED: POLY335019 PO (08:45)
[2016-09-21] MEDS ORDERED: PSYL48.59 PO (08:55)
[2016-09-28] MEDS ORDERED: DTR/5 PO (08:55)
[2016-10-20] MEDS ORDERED: TAMS0.4C38 PO (08:29)
== END 2016-07-09 16:30 | disposition home or self-care (01) | DRG 728 ==
LOC: ENRESERVDT → ENRESERVTM → C.EDB 23:01 → C.MSN 23:16
PROVIDERS: ADMIT Hospitalist; ATTEND Internal Medicine
DX: N41.0 Acute prostatitis (principal); R50.9 Fever, unspecified; R11.10 Vomiting, unspecified

== ENCOUNTER → 2016-11-27 | Outpatient (CLI) | payer OTHER ==
[~2016-11-27] MED LIST: CETI10TA84 PO; DTR/5 PO; MULTTAB58 PO; OMEG10007 PO; PSYL48.59 PO; TAMS0.4C38 PO; [UNRECOGNIZED DRUG - REMARK] PO
[2016-11-27 08:31] VITALS: BP 132/86; PULSE 63; TEMP 36.4; O2SAT 95
--- NOTE | 2016-11-27 09:19 | Radiation Oncology Follow-Up ---
Radiation Oncology Follow-Up Date of Visit Nov 27, 2016. Reason For Visit One-month follow-up and cancer survivorship care plan Radiation Completion Date 10/29/16 Diagnosis (1) Prostate cancer Status: Acute Onset Date: 07/06/2016 Location: left lobe of the prostate Histology Subtype: adenocarcinoma Stage: ll Permanent Comment: Rising PSA, pretreatment PSA 6.2 Status post ultrasound-guided biopsies 07/06/2016 Adenocarcinoma [place] 3+3 and 3+4 Prostate volume 24.71 Prostate density 0.250 Hormone suppression was not required Status post completion of radiation therapy 10/29/2016. He received 7740 cGy utilizing IMRT/IGRT VMAT Last Edited By: Betty Mcbride on Nov 05, 2016 07:55 History of Present Illness Mr. Baxter is a 61-year-old gentleman who presents with a recently elevated PSA of 6.2 on 04/20/2016; the patient's previous PSA was 3.0 on 04/17/2013. The patient was referred to Dr. Julita Vasquez. Dr. Vasquez did perform a digital rectal exam which revealed no evidence of palpable disease. Dr. Vasquez recommended a transrectal ultrasound-guided biopsy of the prostate gland. The patient underwent a transrectal ultrasound-guided biopsy of the prostate gland on 07/06/2016. During the procedure, Dr. Vasquez measured the prostate gland to be 24.71 cc. Pathology revealed prostate adenocarcinoma involving 6/14 cores. The highest grade disease was prostate adenocarcinoma [place] 3+4 involving the left lateral mid and involved 90% of the prostate biopsy specimen. Dr. Vasquez discuss treatment options including surgery and radiation therapy. We are now seeing the patient in consultation discuss role of radiation therapy. Today, the patient's IPSS score 13/35. The patient's EPIC QoL score is 12/60. The patient denies any history of rectal hemorrhoids or inflammatory bowel disease. The patient denies any history of TURP. The patient has no other complaints. All options were reviewed with the patient. He made a decision to undergo radiation therapy with external beam treatment. He received 7400 cGy. This was completed 10/29/2016. Treatment utilizing IMRT/IGRT VMAT. Interim History He's been doing well over the past month. He gave an AUA score of 5. At the end of treatment he had an AUA score of 10. He has continued on Ditropan 1 daily and Flomax 0.4 mg daily. Completed expanded prostate cancer index composite for clinical practice and gave a score of 2 of 12 and urinary incontinence symptoms. He gave a score of 2 of 12 urinary irritation symptoms. He gave a score of 0 of 12 bowel symptoms. He gave a score of 5 of 12 in sexual symptoms. He gave a score 1 of 12 and hormonal vitality symptoms. His total was 10 of 60. He has noted that since taking Metamucil on a daily basis he has less issues with his hemorrhoids. He plans to continue the Metamucil daily. Allergies Coded Allergies: Ciprofloxacin (Unverified Allergy, Unknown, UNKNOWN, 07/07/16) PER PT ANTIBIOTIC DOES NOT WORK. Home Medications Scheduled Cetirizine (Zyrtec), 10 MG PO DAILY Fish Oil ([place]-3), 1 CAP PO BID Multiple Vitamin (Multivitamin), 1 TAB PO DAILY Oxybutynin Chloride (Ditropan), 1 TAB PO BID Psyllium (Metamucil), 1 TSP PO BID Tamsulosin Hcl (Flomax), 1 CAP PO DAILY [Fiber pills], 2 TABS PO BID Review of Systems Gastrointestinal: Symptoms: WNL Oral: Symptoms: No Problems Respiratory: Symptoms: WNL Urinary: Symptoms: WNL Comments: pretty much back to normal Skin: Symptoms: No Problems Physical Exam Vital Signs Date Time Temp Pulse Resp B/P (MAP) Pulse Ox O2 Delivery O2 Flow Rate FiO2 11/27/16 08:31 36.4 63 16 132/86 95 Pain: Patient Pain Scale: 0 - 10 Initial Pain Intensity: 0.0 Fatigue: None General Appearance: no apparent distress Eyes: normal inspection, EOMI ENT: normal ENT inspection, hearing grossly normal Respiratory/Chest: lungs clear, no respiratory distress, no accessory muscle use Cardiovascular: regular rate, rhythm, no gallop, no murmur Abdomen: non tender, soft Extremities: no pedal edema Neurologic/Psychiatric: no motor/sensory deficits, alert, normal mood/affect Skin: warm/dry Laboratory Studies PSA was drawn today. Assessment & Plan Plan: A PSA was drawn today and he'll be notified as to the results. He has a recheck appointment with Dr. Vasquez in one month. We will forward her a copy of the PSA from today. I've asked him to stop the Ditropan. He may begin to wean off of Flomax. He'll take one every other day for a week. He'll take one every third day and then discontinue. Today we completed a cancer survivorship care plan. A copy of the document was given to the patient. We asked him to return to our office in 6 months. He may call if he has any questions or concerns in the interim. Total Time In Follow-Up I spent 20 minutes speaking to the patient and performing examination. I spent 20 minutes reviewing information, preparing the survivorship document, and completing this note. Copy To Deni Montalvo; Julita Vasquez MD
== END | disposition home or self-care (01) ==
LOC: C.ONC 07:58
PROVIDERS: ATTEND Physician Assistant Medical
DX: Z08 Encounter for follow-up examination after completed treatment for malignant neoplasm (principal); Z92.3 Personal history of irradiation; Z85.46 Personal history of malignant neoplasm of prostate

== ENCOUNTER → 2017-06-04 | Outpatient (CLI) | payer OTHER ==
[2017-06-04 09:02] VITALS: BP 129/80; PULSE 64; TEMP 36.5; O2SAT 95
--- NOTE | 2017-06-04 09:46 | Radiation Oncology Follow-Up ---
Radiation Oncology Follow-Up Date of Visit Jun 04, 2017. Reason For Visit 6 month follow up Radiation Completion Date finished 10-29-2016 , IMRT / IGRT , VMAT Diagnosis (1) Prostate cancer Status: Acute Onset Date: 07/06/2016 Location: Left lobe of the prostate Histology Subtype: Adenocarcinoma Stage: ll (Biopsy stage) Permanent Comment: Rising PSA, pretreatment PSA 6.2 Status post ultrasound-guided biopsies 07/06/2016 Adenocarcinoma [place] 3+3 and 3+4 Prostate volume 24.71 Prostate density 0.250 Hormone suppression was not required Status post completion of radiation therapy 10/29/2016. He received 7740 cGy utilizing IMRT/IGRT VMAT Last Edited By: Betty Mcbride on Nov 05, 2016 07:55 History of Present Illness Mr. Baxter is a 61-year-old gentleman who presents with a recently elevated PSA of 6.2 on 04/20/2016; the patient's previous PSA was 3.0 on 04/17/2013. The patient was referred to Dr. Julita Vasquez. Dr. Vasquez did perform a digital rectal exam which revealed no evidence of palpable disease. Dr. Vasquez recommended a transrectal ultrasound-guided biopsy of the prostate gland. The patient underwent a transrectal ultrasound-guided biopsy of the prostate gland on 07/06/2016. During the procedure, Dr. Vasquez measured the prostate gland to be 24.71 cc. Pathology revealed prostate adenocarcinoma involving 6/14 cores. The highest grade disease was prostate adenocarcinoma [place] 3+4 involving the left lateral mid and involved 90% of the prostate biopsy specimen. Dr. Vasquez discuss treatment options including surgery and radiation therapy. We are now seeing the patient in consultation discuss role of radiation therapy. Today, the patient's IPSS score 13/35. The patient's EPIC QoL score is 12/60. The patient denies any history of rectal hemorrhoids or inflammatory bowel disease. The patient denies any history of TURP. The patient has no other complaints. All options were reviewed with the patient. He made a decision to undergo radiation therapy with external beam treatment. He received 7400 cGy. This was completed 10/29/2016. Treatment utilizing IMRT/IGRT VMAT. Interim History He has been doing well over the past 6 months. Today gave an AUA score of 8. He feels his urinary status is stable. Following his last visit he was able to discontinue the Flomax and Ditropan. He completed and expanded prostate cancer index composite for clinical practice and gave a score of 0 of 12 and urinary incontinence. He gives score of 1 of 12 and urinary irritation symptoms. He gave a score of 0 12 and bowel symptoms. He gave a score of 6 of 12 and sexual symptoms. He gave a score of 0 12 and hormonal vitality symptoms. His total was 7 of 60. He had a PSA November 27, 2016 that was 3.910. Previous PSA had been 6.2. Allergies Coded Allergies: Ciprofloxacin (Unverified Allergy, Unknown, UNKNOWN, 07/07/16) PER PT ANTIBIOTIC DOES NOT WORK. Home Medications Scheduled Cetirizine (Zyrtec), 10 MG PO DAILY Fish Oil ([employer]-3), 1 CAP PO BID Multiple Vitamin (Multivitamin), 1 TAB PO DAILY Psyllium (Metamucil), 1 TSP PO BID [Fiber pills], 2 TABS PO BID Review of Systems Gastrointestinal: Symptoms: WNL Oral: Symptoms: No Problems Respiratory: Symptoms: WNL Urinary: Symptoms: Nocturia Comments: nocturia times 1 , occ urgency, the same as before the radiation Skin: Symptoms: No Problems Physical Exam Vital Signs Date Time Temp Pulse Resp B/P (MAP) Pulse Ox O2 Delivery O2 Flow Rate FiO2 06/04/17 09:02 36.5 64 16 129/80 95 Fatigue: None General Appearance: no apparent distress Eyes: normal inspection, EOMI ENT: normal ENT inspection, hearing grossly normal Respiratory/Chest: lungs clear, no respiratory distress, no accessory muscle use Cardiovascular: regular rate, rhythm, no gallop, no murmur Abdomen: non tender, soft, no organomegaly Extremities: no pedal edema Neurologic/Psychiatric: no motor/sensory deficits, alert, normal mood/affect Skin: warm/dry Pain Management Patient Reports Pain: No Side: Bilateral Patient Preferred Pain Scale: 0 - 10 Initial Pain Intensity: 0.0 Pain Management Plan He denies pain therefore requires no pain management. Laboratory Laboratory Results: pending Pathology Pathology Results: were reviewed, and pertinent findings noted in HPI Imaging Imaging Studies: not applicable Assessment & Plan He was seen today by Dr. Tidwell. A PSA was drawn. He will be notified as to results. He has a follow-up appointment with Dr. Vasquez in 6 months. We asked him to return to our office in 1 year. He is pleased with his current urinary status. He will stay off of the previous medications of Flomax and Ditropan. He may call if he has any questions or concerns in the interim. Assessment & Plan (Attending) I agree with note created by Betty Mcbride PA-C. I reviewed the patient's chart and information with her. I have examined and evaluated the patient. I reviewed relevant clinical information and answered the patient's and/or family' s questions. INDUSTRIAL RELATIONS MANAGER Total Time In Follow-Up I spent 20 minutes speaking to the patient and performing examination. I spent 15 minutes reviewing information and completing this note. [place] Total Time (Attending) In Follow-Up I spent 15 minutes examining and counseling the patient. INDUSTRIAL RELATIONS MANAGER Copy To Deni Montalvo; Julita Vasquez MD
== END | disposition home or self-care (01) ==
LOC: C.ONC 08:56
PROVIDERS: ATTEND Physician Assistant Medical
DX: Z08 Encounter for follow-up examination after completed treatment for malignant neoplasm (principal); Z92.3 Personal history of irradiation; Z85.46 Personal history of malignant neoplasm of prostate

== ENCOUNTER 2017-06-21 15:35 | Emergency (ER) | payer OTHER ==
[~2017-06-21] VITALS: Ht 175.3 cm; Wt 89.7 kg
[~2017-06-21 15:35] MED LIST changes: -DTR/5 PO; -TAMS0.4C38 PO
[2017-06-21 15:56] VITALS: TEMP 36.5; Ht 175.3 cm; Wt 89.7 kg
--- NOTE | 2017-06-21 16:47 | DIAGNOSTIC IMAGING REPORT ---
L KNEE 3 VIEWS HISTORY: 62 years-old Male left knee pain, fall off truck acute left knee pain status post fall COMPARISON: None available TECHNIQUE: 3 views of the left knee FINDINGS: Minimal marginal spurring about the medial and patellofemoral compartments without significant joint space narrowing, acute fracture or dislocation. No large joint effusion. 5 mm corticated bone fragment adjacent to the inferior pole patella. Mild soft tissue swelling about the knee. No opaque foreign body. IMPRESSION: 1. Mild soft tissue swelling without acute fracture. 2. 5 mm corticated bone fragment adjacent to the inferior pole patella suggests healed remote avulsion fracture. The above report was generated using voice recognition software. It may contain grammatical, syntax or spelling errors. Electronically signed by: Ariel Bonilla M.D. 06/21/2017 4:46 PM Dictated Date/Time: 06/21/2017 4:44 PM
[2017-06-21 17:05] VITALS: BP 134/88; PULSE 51; O2SAT 96
--- NOTE | 2017-06-21 17:10 | EMERGENCY ROOM VISIT NOTE ---
ED Visit Note First contact with patient: 16:02 CHIEF COMPLAINT: Left knee pain HISTORY OF PRESENT ILLNESS: This 62-year-old male patient presents to the emergency department, ambulatory, approximately 5 hours after sustaining an injury to the left knee when he fell approximately 4 feet off of the back of a truck at work. The patient states when he fell, he landed on his left knee, and is experiencing pain in the medial aspect of the knee with turning. He states his foot got caught on an object in the truck. He denies hitting his head, neck pain, back pain, abdominal pain, headache, dizziness, nausea, vomiting, chest pain, dyspnea, abdominal pain, flank pain, or blood in his urine. The patient denies any other injuries besides their knee. The patient denies swelling or bruising. They rate the pain as sharp and 5/10. The patient states they are able to walk on it. No numbness or tingling. No previous injuries to this knee. No ankle, foot or hip pain. REVIEW OF SYSTEMS: A 6 system review of systems was completed with positives and pertinent negatives listed in the HPI. ALLERGIES: Cipro MEDICATIONS: Claritin PMH: Hayfever SOCIAL HISTORY: The patient lives locally with family. He denies drug, alcohol , tobacco use. The patient works at [employer]. PHYSICAL EXAM: Vital Signs: Reviewed Nurse's notes, vital signs stable. GENERAL : This is a 62-year-old male, no acute distress, but appears in pain, well- developed, well-nourished. MENTAL STATUS: Alert, oriented to person place and time, and cooperative. MUSCULOSKELETAL: The left knee is not swollen. There is no ecchymosis. There is no joint effusion present. The patient is tender over the medial epicondyle of the femur. There is no joint line tenderness. The patella does appropriately subluxate. Range of motion is full. Strength of the quads and hamstrings is 5/5. Jesús's is negative. Bull's and Anterior Drawer tests are negative. There is discomfort, but no laxity with varus and valgus stressing. The foot and toes are warm and well-perfused. Dorsalis pedis pulse 2+. Sensation to pain and light touch is intact. Capillary refill less than 2 seconds. No neck, back, rib pain. RADIOLOGY: L KNEE 3 VIEWS HISTORY: 62 years-old Male left knee pain, fall off truck acute left knee pain status post fall COMPARISON: None available TECHNIQUE: 3 views of the left knee FINDINGS: Minimal marginal spurring about the medial and patellofemoral compartments without significant joint space narrowing, acute fracture or dislocation. No large joint effusion. 5 mm corticated bone fragment adjacent to the inferior pole patella. Mild soft tissue swelling about the knee. No opaque foreign body. IMPRESSION: 1. Mild soft tissue swelling without acute fracture. 2. 5 mm corticated bone fragment adjacent to the inferior pole patella suggests healed remote avulsion fracture. The above report was generated using voice recognition software. It may contain grammatical, syntax or spelling errors. Electronically signed by: Ariel Bonilla M.D. 06/21/2017 4:46 PM Dictated Date/Time: 06/21/2017 4:44 PM EMERGENCY DEPARTMENT COURSE: I examined the patient. X-rays of the left knee were reviewed by myself and read by radiology and reveal no acute fracture, but mild soft tissue swelling. There is a suggested healed remote avulsion fracture of the patella. I discussed these findings with the patient at bedside , and he was unaware of the old avulsion fracture. I did recommend an Jonny wrap and offered crutches. The patient declined the crutches was agreeable to the Jonny wrap. He was offered analgesics while here in the emergency department and declined. He was encouraged to follow-up with orthopedics/his Workmen's Compensation provider at the end of the week. The patient was agreeable. Discharge instructions reviewed. The patient was discharged home in good condition. I attest that I have personally reviewed the patient's current medication list. Patient was found to have normal blood pressure on screening and does not require follow-up. Etiologies such as soft tissue injury, fracture, dislocation, neurovascular compromise, compartment syndrome, as well as others were entertained. DIAGNOSIS: Right knee contusion The chart was completed utilizing [employer] voice recognition software. Grammatical errors, random word insertions, pronoun errors, and incomplete sentences are an occasional consequence of this system due to software limitations, ambient noise, and hardware issues. Any formal questions or concerns about the content, text, or information contained within the body of this dictation should be directly addressed to the provider for clarification. Current/Historical Medications Scheduled Cetirizine (Zyrtec), 10 MG PO DAILY Fish Oil (Mcdavid-3), 1 CAP PO BID Multiple Vitamin (Multivitamin), 1 TAB PO DAILY Psyllium (Metamucil), 1 TSP PO BID [Fiber pills], 2 TABS PO BID Allergies Coded Allergies: Ciprofloxacin (Unverified Allergy, Unknown, UNKNOWN, 07/07/16) PER PT ANTIBIOTIC DOES NOT WORK. Vital Signs Date Time Temp Pulse Resp B/P (MAP) Pulse Ox O2 Delivery O2 Flow Rate FiO2 06/21/17 17:05 51 20 134/88 96 06/21/17 15:56 36.5 55 20 131/85 97 Room Air Departure Information Impression Primary Impression: Contusion of left knee Dispostion Home / Self-Care Condition GOOD Referrals Radha Aponte (PCP) Patient Instructions ED Contusion Lower Ext, My [facility] Additional Instructions You were seen and evaluated in the ED today for a left knee contusion after fall from truck. X-ray did not reveal any acute fractures. As discussed, incidentally, there was a healed avulsion fracture of the patella. Ibuprofen(Motrin, Advil) may be used for fever or pain. Use 600mg every six hours as needed. Take with food. Avoid using more than 2400mg in a 24 hour period. Do not use 2400mg per day for more than three consecutive days without physician direction. Prolonged inappropriate use can lead to stomach upset or ulcers. (AND/OR) Acetaminophen(Tylenol) may be used for fever or pain. Use 1000mg every six hours as needed. Avoid using more than 3000mg in a 24 hour period. Ice compresses for 20 minutes at a time four times daily for 2-3 days. Rest and elevate your injury. Use the JONNY wrap as needed for compression and comfort. Return to the ER immediately for any numbness, tingling, severe pain, extreme swelling in the extremity or as needed. Call [facility], [phone], or your required orthopedic surgeon based on your Worker's Compensation, if no improvement in 1 week, to arrange follow up for your injury. Follow-up with your primary care physician/Worker's compensation provider in 2 to 3 days for a recheck of your current condition. Problem Qualifiers Primary Impression: Contusion of left knee Encounter type: initial encounter Qualified Codes: S80.02XA - Contusion of left knee, initial encounter
== END 2017-06-21 17:25 | disposition home or self-care (01) ==
LOC: C.EDB 15:36 → C.EDD 17:25
DX: S80.02XA Contusion of left knee, initial encounter (principal); M25.562 Pain in left knee; W17.89XA Other fall from one level to another, initial encounter; Y99.0 Civilian activity done for income or pay